=== PATIENT | male | born 1965 | race Two or more races ===

== ENCOUNTER 2019-07-08 11:31 | Emergency (ER) | payer OTHER ==
[~2019-07-08] VITALS: Ht 165.1 cm; Wt 68.9 kg
--- NOTE | 2019-07-08 11:45 | NUR ---
BIB SELF 54 YEAR OLD MALE C/O LACERATION TO L HAND S/P CUT WITH WOOD SAW THIS MORNING. ALERT AND ORIENTED X4 BREATHING EVEN AND UNLABORED WITH NO DISTRESS NOTED. SKIN INTACT. 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 WAITING TO BE SEEN MY MD
[2019-07-08] MEDS ORDERED: LIDOCAINE 1% INJ 50 ML MDV IJ ONE ×2 (12:18→12:30)
--- NOTE | 2019-07-08 13:22 | NUR ---
emt tech at bedside
--- NOTE | 2019-07-08 13:22 | NUR ---
Note scott in EDM - 07/08/19 at 1323 by HONORIO BIB SELF 54 YEAR OLD MALE C/O LACERATION TO L HAND S/P CUT WITH WOOD SAW THIS MORNING. ALERT AND ORIENTED X4 BREATHING EVEN AND UNLABORED WITH NO DISTRESS NOTED. SKIN INTACT. 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 WAITING TO BE SEEN MY
--- NOTE | 2019-07-08 13:30 | NUR ---
Patient discharged to home in stable condition. Written and verbal after care instructions given. Patient verbalizes understanding of instruction.
[2019-07-08 13:31] VITALS: BP 154/80
== END 2019-07-08 13:31 | disposition home or self-care (01) ==
LOC: ER 11:31
DX: S61.012A Laceration without foreign body of left thumb without damage to nail, initial encounter (principal); I10 Essential (primary) hypertension; E11.9 Type 2 diabetes mellitus without complications; W26.8XXA Contact with other sharp object(s), not elsewhere classified, initial encounter; Y93.89 Activity, other specified; Y92.89 Other specified places as the place of occurrence of the external cause; Y99.8 Other external cause status
CPT/HCPCS: 12001; 73130; 99283; A6403; J3490